=== PATIENT | female | born 1985 | race Caucasian/White ===

== ENCOUNTER 2016-12-29 09:31 | Emergency (ER) | payer OTHER ==
[~2016-12-29] VITALS: Ht 177.8 cm; Wt 79.5 kg
[2016-12-29 09:34] VITALS: TEMP 98.2
[2016-12-29] MEDS ORDERED: PRENATAL PO (09:39)
[2016-12-29] MEDS ORDERED: NORCO 325 MG-51 TAB PO (11:16)
[2016-12-29] MEDS ORDERED: CRUTCHES MC (11:20)
[2016-12-29 11:22] VITALS: BP 103/62; PULSE 58
== END 2016-12-29 11:30 | disposition home or self-care (01) ==
LOC: COL.ER 09:31
DX: O9A.212 Injury, poisoning and certain other consequences of external causes complicating pregnancy, second trimester (principal); S83.015A Lateral dislocation of left patella, initial encounter; Z3A.21 21 weeks gestation of pregnancy; X50.1XXA Overexertion from prolonged static or awkward postures, initial encounter
CPT/HCPCS: J1170; J3010; J7030; L1830